=== PATIENT | male | born 1995 | race Caucasian/White ===

== ENCOUNTER 2023-01-31 | Outpatient (REF) | payer OTHER, SELFPAY ==
[2023-02-01 14:48] LABS: Amphetamine Screen Urine POSITIVE (Not Detect); Barbiturates, Urine Not Detected (Not Detect); Benzodiazepines Screen Urine Not Detected (Not Detect); Cannabinoid Screen Urine POSITIVE (Not Detect); Cocaine Screen Urine Not Detected (Not Detect); Fentanyl, urine Not Detected (Not Detect); Opiate Screen Urine Not Detected (Not Detect); Phencyclidine Screen Urine Not Detected (Not Detect)
== END 2023-01-31 00:01 | disposition home or self-care (01) ==
LOC: HO.LNP
PROVIDERS: Visit Provider Clinical Nurse Specialist Psychiatric/Mental Health
DX: F14.20 Cocaine dependence, uncomplicated (principal); F12.20 Cannabis dependence, uncomplicated; F10.99 Alcohol use, unspecified with unspecified alcohol-induced disorder
CPT/HCPCS: 80307

== ENCOUNTER → 2023-01-31 11:45 | Outpatient (BNV) | payer OTHER, SELFPAY | PROVIDERS: Visit Provider Clinical Nurse Specialist Psychiatric/Mental Health | DX: F33.9 Major depressive disorder, recurrent, unspecified (principal) | CPT/HCPCS: 99204; 99213; 99214 ==

== ENCOUNTER 2023-02-14 12:00 | Outpatient (RCR) | payer OTHER, SELFPAY ==
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
[2023-01-31 12:07] VITALS: BP 131/85; PULSE 73; TEMP 36.8
[2023-01-31 12:09] VITALS: BMI 19.2
--- NOTE | 2023-01-31 13:23 | PC.ADMIT ---
Patient is a 27 year old male who was referred from [facility] inpatient unit where he was admitted d/t depression with SI, no plan or intent, and AH in the context of substance abuse and relapse with in the last 7 months d/t financial insecurity. Patient has a history of poly-substance abuse and recently relapsed on cocaine after his mother asked him to leave her home. He was on the streets with no support and used cocaine for 7 days prior to admission to the hospital. Patient also stated he uses Marijuana throughout the day. Patient toxicology screen positive for cocaine, marijuana, and amphetamines. Last use of cocaine 12/28/22. Patient stated, Depression , drug abuse, thought process was not clear, prior to hospitalization. His goal get GED and go back to school for graphic design. Patient reports he and his sister were the only ones in his family with substance issues and stated, My sister last week of overdose found on the street face down. today at 6pm . Stated he is waiting to get into a residential program for substance use in [place] in February 2023 for additional support. Patient is alert and oriented x4. Calm and cooperative. Presented with depressed mood and affect. Denied SI, AH, VH. Patient given a copy of his safety plan and i reviewed this with him. Medications reconciled with [facility] and [facility] in [place]. Reports taking medications as prescribed. [ End ]
--- NOTE | 2023-01-31 16:19 | HO.PHP ---
Clients case was reviewed and opened today in treatment team.
--- NOTE | 2023-02-04 11:12 | P.PNPSP_ITS ---
Subjective Subjective Date of Service: 02/04/23 Reason For Visit: MDD,PTSD,ADHD,DELMA Interim History: Memo box is seen for follow-up. He has been in the program since the end of last week. He was referred after discharge from the psychiatric unit at [facility]. Current medications include Adderall, Elavil, trazodone, melatonin and hydroxyzine. These were all prescribed while in the hospital. He was discharged on these. He does not have an outpatient provider yet. He denies any side effects. No SI. He has been substance free since early January after his discharge. No changes were made today Medication Compliance: Yes Side effects from medications: No Attending Groups: Yes Review of Systems Review of Systems Yes all other systems are reviewed and are negative Diagnostics Vital Signs (24Hr): BMI result Body Mass Index 19.2 Assessment & Plan Assessment & Plan (1) Major depression, recurrent: Status: Acute Code(s): F33.9 - Major depressive disorder, recurrent, unspecified Plan Continue partial hospital program. Continue current medications Patient educated on: diagnosis and medication risk/benefits Certification I certify that partial hospital treatment is medically necessary due to the symptoms and problems resulting from the patient's mental illness and the failure to treat the patient at the partial hospital level of care would likely result in the patient requiring inpatient psychiatric care which could not be prevented at a less intensive level of care. Total time managing care of this patient today ____ minutes. Discharge Plan Discharge Attending provider: Stephen Marquis Medications: New amitriptyline 10 mg tablet 10 mg PO BEDTIME Qty: 14 0RF dextroamphetamine-amphetamine [Adderall XR] 15 mg capsule,extended release 24hr 15 mg PO QAM 14 Days Qty: 14 0RF Rx Instructions: Partial Fill upon patient request. amitriptyline 10 mg tablet 10 mg PO BEDTIME Qty: 14 0RF dextroamphetamine-amphetamine [Adderall XR] 15 mg capsule,extended release 24hr 15 mg PO QAM 14 Days Qty: 14 0RF Rx Instructions: Partial Fill upon patient request. No Action amitriptyline 10 mg tablet 10 mg PO BEDTIME dextroamphetamine-amphetamine 15 mg Capsule,Extended Release 24hr 15 mg PO DAILY Rx Instructions: Last Filled 01/11/23 #30 at [facility]. trazodone 50 mg tablet 25 mg PO QD-BID PRN (Reason: Insomnia) melatonin 3 mg tablet 9 mg PO BEDTIME PRN (Reason: insomnia) nicotine 21 mg/24 hr patch 24 hour 1 patch topical DAILY hydroxyzine pamoate 25 mg Capsule 25 mg PO BID PRN (Reason: Anxiety)
--- NOTE | 2023-02-04 11:15 | HO.PHP ---
After reviewing Zackary's treatment plan with him, Zackary explored if he could go home because he did not take his adderall this morning and is becoming irritable. Zackary stated that he struggles with impulse control and is worried that he is going to hurt someone's feeling by saying stuff he doesn't want to say. [facility] staff praised Zackary for being able to recognize that and assessed for safety prior to Zackary leaving the program. Zackary presented with no safety concerns and stated he will be back tomorrow. Zackary disclosed he is going to try to leave his sketch book in the car so he can be more present in the group setting. [facility] staff was receptive.
--- NOTE | 2023-02-05 08:44 | HO.PHP ---
PHP staff faxed over the referral for OP therapy and Med Management to [facility]. PHP staff is awaiting a call with scheduled appointment dates and times.
--- NOTE | 2023-02-05 09:18 | PC.NURSE ---
Zackary did not show up to the program this morning. I called Zackary and he stated he overslept this morning. Plans on coming to the program tomorrow. [facility] staff is aware.
--- NOTE | 2023-02-05 09:55 | PC.NURSE ---
Patient requested my assistance in obtaining a new PCP appointment. I called and spoke to Lisbeth and let him know that there are 2 offices out of 16 at this time that take his insurance and have appointments, the [place] office and [place] Office. Zackary requested the [place] office. Appointment with New PCP at [facility]. [facility]. Office # [phone]. Appointment on February 20, 2023 at 2:20 PM with Albina Branch.
--- NOTE | 2023-02-06 11:26 | HO.PHP ---
[facility] staff followed up with Zackary regarding his conversation with his mother around attending [facility]. Zackary had mentioned that his mother is still needing support but he is going to follow through with [place] at this time to take care of his needs. [facility] staff was receptive and explored if we could contact them to see when he can begin services. Zackary was in agreement and gave verbal consent. [facility] staff left a message with the guest relations receptionist and is waiting a phone call back. [facility] staff further reviewed his treatment plan with him and made him aware of some updates that were made. Zackary was receptive and signed.
--- NOTE | 2023-02-07 09:43 | PC.NURSE ---
Zackary did not show up to the program this morning. I called and spoke to Zackary who stated his mother and he got into an argument about coming to the program today and his mother kicked him out of the house. He stated he was having car problems this morning. He stated he is on his way to a prison in [place]. He denied any safety concerns, stated he did not need to go to the ER. He denied relapsing on cocaine. [facility] staff is aware.
--- NOTE | 2023-02-12 09:22 | PC.NURSE ---
Zackary did not show up to the program this morning. I called Zackary and he stated it is his birthday today and would not be coming in. He stated he would be spending time with his mother and family. His speech was slightly slurred. I asked him if he was under the influence of ETOH or drugs and he stated he was not and he was just tired. He sounded like I woke him up. I asked him if he was safe he stated he was, he denied SI or thoughts to harm himself. He stated he would be in to the program tomorrow. I asked him where he was living currently as his mother reportedly kicked him out of the house and he was going to a fci in [place] [facility]. He stated he is currently staying in [place] however stated he was not able to give me the address. He stated if we are unable to reach him we could call his mother. [facility] staff is aware.
--- NOTE | 2023-02-13 08:37 | HO.PHP ---
[facility] staff received a message from the Admin, Aliya, stating that Zackary had contacted her making her aware that he cannot attend the program today due to not being able to afford an uber. Aliya assessed for safety and he stated he was safe and would be attending program tomorrow.
--- NOTE | 2023-02-13 08:40 | HO.PHP ---
[facility] staff reached out to [facility] to follow up around appointments for Isai. [facility] staff member left a VM with Tiana and is awaiting a phone call back.
--- NOTE | 2023-02-14 12:40 | HO.PHPPROGNO ---
Subjective Subjective Date of Service: 02/14/23 Reason For Visit: MDD,PTSD,ADHD,DELMA Interim History: [facility] H and P note 01/31/23: referred to [facility] as step down from [facility]TU inpatient where he was treated from 12/28/22 through 01/09/23. Pt has dx of PTSD, MDD, ADHD, and DELMA including cannabis and cocaine use. Pt was homeless after mother asked him to leave her house; he was walking the streets and using crack cocaine; He was brought to ED via ambulance due to auditory hallucinations and disorganization. He is scheduled for admission to inpatient residential treatment facility called [facility] in [facility] sometime in February. Pt reports this is the first time he's been in [facility]. He reports the meds adderall and amitriptyline are helping his mood; He reports less depressiona nd less anxiety since getting back on the adderall;He reports he was on adderall a few years ago and it helps withhis focus and attention; he reports sleeping well; He reports some anxiety but feels he is coping well; He denies craving for alcohol or drugs. He denies side effects from medication. Past Psychiatric History: hx 2 suicide attempts age 14 and in 2019. History of self harm/cutting since teen no outpatient providers currently One IPLOC at [facility] December 2022 tx at [facility] in 2019 tx at [facility] and [place] in past Follow up [facility] 02/04/23: no changes MassPAT/PDMP: Adderal 14 days filled 02/08/23 Today: Planned discharge Medication Compliance: Yes Side effects from medications: No Attending Groups: Yes Review of Systems Acute medical concerns: No Diagnostics Vital Signs (24Hr): BMI result Body Mass Index 19.2 Assessment & Plan Certification I certify that partial hospital treatment is medically necessary due to the symptoms and problems resulting from the patient's mental illness and the failure to treat the patient at the partial hospital level of care would likely result in the patient requiring inpatient psychiatric care which could not be prevented at a less intensive level of care. Total time managing care of this patient today ____ minutes. Discharge Plan Discharge Attending provider: Setphen Marquis Additional Instructions: Appointment with New PCP at [facility]. [address] [facility]. Office # [phone]. Appointment on Monday, February 20, 2023 at 2:20 PM with Albina Branch. Medications: New amitriptyline 10 mg tablet 10 mg PO BEDTIME Qty: 14 0RF dextroamphetamine-amphetamine [Adderall XR] 15 mg capsule,extended release 24hr 15 mg PO QAM 14 Days Qty: 14 0RF Rx Instructions: Partial Fill upon patient request. No Action trazodone 50 mg tablet 25 mg PO QD-BID PRN (Reason: Insomnia) melatonin 3 mg tablet 9 mg PO BEDTIME PRN (Reason: insomnia) nicotine 21 mg/24 hr patch 24 hour 1 patch topical DAILY hydroxyzine pamoate 25 mg Capsule 25 mg PO BID PRN (Reason: Anxiety) Stand Alone Forms: Patient Portal Discharge page Patient Education: Cocaine Abuse (DC), Post Traumatic Stress Disorder (DC)
--- NOTE | 2023-02-14 12:58 | P.PNPSP_ITS ---
Subjective Subjective Date of Service: 02/14/23 Reason For Visit: MDD,PTSD,ADHD,DELMA Interim History: Zackary is seen in follow-up/discharge. He talked about the specific ways that the program was extremely helpful to him. He does have an appointment with his outpatient providers the 18 of February. He is short on hydroxyzine 25 mg b.i.d. p.r.n. which I called in for him. He denies any SI. He will follow-up with his outpatient providers Review of Systems Review of Systems Yes all other systems are reviewed and are negative Mental Status Exam Mental Status Exam Patient Appearance: Well Grooomed and Appropriate Patient Orientation: Person, Place, Time and Situation Level of Consciousness: Awake and Alert Patient Behavior: Guarded and Cooperative Mood Description: Anxious Affect Description: Anxious Patient Cognition Impaired: No Ability to Follow Directions: Good Speech Pattern: Clear Memory Description: Intact Hallucinations: None Delusions: Not Present Thought Process: Intact and Goal Oriented Thought Content: positive for Intact and positive for Goal Oriented Judgement: Fair Diagnostics Vital Signs (24Hr): BMI result Body Mass Index 19.2 Assessment & Plan Assessment & Plan (1) Major depression, recurrent: Status: Acute Code(s): F33.9 - Major depressive disorder, recurrent, unspecified Plan He is being discharged today and will follow up with his outpatient providers Patient educated on: diagnosis and medication risk/benefits Certification I certify that partial hospital treatment is medically necessary due to the symptoms and problems resulting from the patient's mental illness and the failure to treat the patient at the partial hospital level of care would likely result in the patient requiring inpatient psychiatric care which could not be prevented at a less intensive level of care. Total time managing care of this patient today ____ minutes. Discharge Plan Discharge Attending provider: Stephen Marquis Additional Instructions: Appointment with New PCP at [facility]. [facility]. Office # [phone]. Appointment on Monday, February 20, 2023 at 2:20 PM with Albina Branch. Medications: New amitriptyline 10 mg tablet 10 mg PO BEDTIME Qty: 14 0RF dextroamphetamine-amphetamine [Adderall XR] 15 mg capsule,extended release 24hr 15 mg PO QAM 14 Days Qty: 14 0RF Rx Instructions: Partial Fill upon patient request. Continued hydroxyzine pamoate 25 mg Capsule 25 mg PO BID PRN (Reason: Anxiety) Qty: 60 0RF No Action trazodone 50 mg tablet 25 mg PO QD-BID PRN (Reason: Insomnia) melatonin 3 mg tablet 9 mg PO BEDTIME PRN (Reason: insomnia) nicotine 21 mg/24 hr patch 24 hour 1 patch topical DAILY Stand Alone Forms: Patient Portal Discharge page Patient Education: Cocaine Abuse (DC), Post Traumatic Stress Disorder (DC)
--- NOTE | 2023-02-14 15:16 | HO.PHP ---
Met with Zackary to go over Homeless Shelters in the area. He was educated on how they operate, their admission process, and the expectations. He was pleasant and grateful stating, Thank you so much. This means everything to me. Thank you.
== END 2023-02-14 23:59 | disposition home or self-care (01) ==
LOC: HO.PHPA 12:00
PROVIDERS: Visit Provider Psychiatry & Neurology Psychiatry
DX: F33.9 Major depressive disorder, recurrent, unspecified (principal); F43.10 Post-traumatic stress disorder, unspecified; F90.9 Attention-deficit hyperactivity disorder, unspecified type; F14.10 Cocaine abuse, uncomplicated; F10.10 Alcohol abuse, uncomplicated; F12.10 Cannabis abuse, uncomplicated
CPT/HCPCS: 90791; 90853